=== PATIENT | female | born 1975 | race Caucasian/White ===

== ENCOUNTER 2021-08-26 03:45 | Outpatient (CLI) | payer MEDICARE, MEDICAID, SELFPAY ==
[2021-08-26] MEDS: Inhaler, Assist Device 1 EACH MC (11:11)
[2021-08-26] MEDS: Albuterol HFA 18 GM 200 PUFF INH IH (11:11)
--- NOTE | 2021-08-27 17:02 | W.PFT ---
Date of service: 08/26/21 Time of Service: 10:12 Pulmonary Function Test Result Requesting Provider Sanae Indications: Muscular dystrophy Interpretation Spirometry: There is no airflow limitation. There is a restrictive pattern to spirometry. There is no significant bronchodilator response. The MIP and MEP are significantly reduced. Lung Volumes: There is severe restrictive lung disease Diffusion Capacity: The diffusion is reduced. Airway Pressure: Normal airways resistance. Impression There is severe restrictive lung disease with significantly reduced muscle pressures, consistent with a neuromuscular disorder. Clinical Correlation therefore is recommended.
== END 2021-08-26 03:46 | disposition home or self-care (01) ==
LOC: RT 03:46
PROVIDERS: PCP Physician Assistant; Visit Provider Student in an Organized Health Care Education/Training Program
DX: G71.11 Myotonic muscular dystrophy (principal); R94.2 Abnormal results of pulmonary function studies; Z87.891 Personal history of nicotine dependence
CPT/HCPCS: 94060; 94726; 94729

== ENCOUNTER 2022-08-19 03:11 | Outpatient (CLI) | payer MEDICARE, MEDICAID, SELFPAY ==
[2022-08-19] MEDS: Albuterol HFA 18 GM 200 PUFF INH IH (09:07)
[2022-08-19] MEDS: Inhaler, Assist Device 1 EACH MC (09:08)
--- NOTE | 2022-08-19 14:06 | PFT_ITS ---
Date of service: 08/19/22 Time of Service: 07:56 Pulmonary Function Test Result Indications: Muscular dystrophy Interpretation Spirometry: There is restrictive appearing spirometry but no airflow limitation. No si gnificant bronchodilator response. Lung Volumes: Moderate restrictive lung disease Diffusion Capacity: Unable to perform DLCO Airway Pressure: Normal airways resistance Impression Moderate restrictive lung disease. Note: When compared to 08/26/21, lung function is stable. Clinical Correlation therefore is recommended.
== END 2022-08-19 03:12 | disposition home or self-care (01) ==
LOC: RT 03:12
PROVIDERS: PCP Physician Assistant; Visit Provider Physician Assistant Surgical
DX: J98.8 Other specified respiratory disorders (principal); G71.09 Other specified muscular dystrophies
CPT/HCPCS: 94060; 94726

== ENCOUNTER → 2023-05-03 12:32 | Outpatient (BNVA) | payer MEDICARE, MEDICAID, SELFPAY | PROVIDERS: PCP Physician Assistant; Referring Provider Physician Assistant; Visit Provider Physician Assistant Surgical | DX: G71.11 Myotonic muscular dystrophy (principal); J98.4 Other disorders of lung; G71.00 Muscular dystrophy, unspecified | CPT/HCPCS: 99214 ==